=== PATIENT | male | born 1945 | race Caucasian/White ===

== ENCOUNTER 2024-02-22 13:44 | Emergency (ER) | payer MEDICARE ==
[~2024-02-22] VITALS: Ht 175.3 cm; Wt 90.7 kg
[~2024-02-22 13:44] MED LIST: ASPIRIN81 MG PO; IBUPROFEN200 MG PO; LISINOPRIL40 MG PO; SYNTHROID50 MCG PO; XARELTO10 MG PO
[2024-02-22 13:50] VITALS: TEMP 98.4
[2024-02-22 14:58] LABS: CLARITY,URINE SL CLOUDY (CLEAR); COLOR,URINE BROWN (YELLOW); LEUKOCYTE ESTERASE ,URINE TRACE (NEGATIVE); NITRITE,URINE NEGATIVE (NEGATIVE); PH,URINE 5.5 (5 - 7)
[2024-02-22 14:59] LABS: BILIRUBIN,URINE SMALL (NEGATIVE); GLUCOSE, URINE NEGATIVE (NEGATIVE); KETONES,URINE TRACE (NEGATIVE); PROTEIN,URINE DIPSTICK >=300 (NEGATIVE); URINE UROBILINOGEN 1 mg/dL (0.2 - 1)
[2024-02-22 15:11] LABS: BACTERIA,URINE MODERATE /HPF; RBC,URINE 21-50 /HPF (0-5)
[2024-02-22 15:52] VITALS: PULSE 79; RESP 16; O2SAT 97
[2024-02-22] MEDS ORDERED: PYRIDIUM100 MG PO (16:11)
[2024-02-22] MEDS ORDERED: CEFDINIR300 MG PO (16:11)
== END 2024-02-22 16:29 | disposition home or self-care (01) ==
LOC: ER 15:04
DX: R30.0 Dysuria (principal); N39.0 Urinary tract infection, site not specified; R31.9 Hematuria, unspecified; I10 Essential (primary) hypertension; E03.9 Hypothyroidism, unspecified; Z87.820 Personal history of traumatic brain injury
CPT/HCPCS: 81001; 87086; 87186; 99282